=== PATIENT | male | born 1985 | race Caucasian/White ===

== ENCOUNTER 2019-12-01 20:13 | Emergency (ER) | payer BC ==
--- NOTE | 2019-12-01 20:26 | PDOC ---
Rapid Medical Evaluation Time Seen by Provider: 12/01/19 20:21 Medical Evaluation: 12/01/19 20:21 This patient had rapid medical evaluation in triage cc: chest pain x this afternoon HPI: Patient sent from [facility]. Reports flu-like symptoms today states while in [facility], started having mid sternal chest pain becoming diaphoretic and with left arm pain. Now with dizziness and weakness PE: NAD clear lungs bilaterally non tender abdomen Orders: labs, saline lock, ekg This patient will proceed to ed for further evaluation. Discharge Disposition - Diagnosis Chest pain - Referrals - Patient Instructions - Post Discharge Activity
[2019-12-01] MEDS ORDERED: SODIUM CHLORIDE 0.9% 1000 ML INFUS.BAG IV ONE (20:27)
[2019-12-01 20:28] VITALS: TEMP 97.6; BMI 26.8
[2019-12-01 23:36] LABS: BASO % 0.3 % (0-2.0); HEMATOCRIT 39.1 % (35.4-49); HEMOGLOBIN 13.6 GM/dL (11.7-16.9); LYMPH % 4.2 % (8-40); MCH 30.1 pg (25.7-33.7); MCHC 34.6 g/dl (32.0-35.9); MEAN CELL VOLUME 86.8 fl (80-96); MEAN PLT VOLUME 8.3 fl (7.5-11.1); MONO % 4.2 % (3.8-10.2); NEUT % 91.3 % (42.8-82.8); PLATELET COUNT 277 K/MM3 (134-434); RBC 4.51 M/mm3 (4.00-5.60); RDW 12.8 % (11.9-15.9)
[2019-12-01 23:49] LABS: INR 1.08 (0.83-1.09); PROTHROMBIN TIME (PATIENT) 12.8 SEC (9.7-13.0)
[2019-12-01 23:52] LABS: ACTIVATED PTT 27.9 SECONDS (25.2-36.5)
[2019-12-02] MEDS ORDERED: ACETAMINOPHEN 650 MG/20.3 ML ORAL SOLUTION (CUPS) PO ONE (00:42)
[2019-12-02 00:43] LABS: ALBUMIN 3.5 g/dl (3.4-5.0); ALK PHOS 67 U/L (45-117); ANION GAP 8 MMOL/L (8-16); BILIRUBIN,TOTAL 0.9 mg/dL (0.2-1); BLOOD UREA NITROGEN 21.4 mg/dL (7-18); CALCIUM 8.4 mg/dL (8.5-10.1); CHLORIDE 109 mmol/L (98-107); CO2 21 mmol/L (21-32); CREATININE 1.3 mg/dL (0.55-1.3); GLUCOSE,RANDOM 134 mg/dL (74-106); SGOT/AST 21 U/L (15-37); SGPT/ALT 29 U/L (13-61); SODIUM 139 mmol/L (136-145); TOT PROT 6.5 g/dl (6.4-8.2)
[2019-12-02] MEDS ORDERED: ACETAMINOPHEN 325 MG TABLET (FP) ONE (00:56)
--- NOTE | 2019-12-02 01:03 | PDOC ---
Documentation entered by Yfn Mckeon SCRIBE, acting as scribe for Jennifer Guthrie MD. Jennifer Guthrie MD: This documentation has been prepared by the Linda camilo Angel, SCRIBE, under my direction and personally reviewed by me in its entirety. I confirm that the documentation accurately reflects all work, treatment, procedures, and medical decision making performed by me. History of Present Illness - General Chief Complaint: Lightheaded Stated Complaint: WEAKNESS Time Seen by Provider: 12/01/19 20:21 History Source: Patient Exam Limitations: No Limitations - History of Present Illness Initial Comments: 12/02/19 00:50 The patient is a 34 year old male with no significant PMH who presents to the emergency department with a fever of 101.7 orally, body aches, sweats, cough and 1 episode of nbnb vomiting since 2pm. Pt states he went to [facility] for evaluation of symptoms, while he was signing papers he developed sudden onset R sided chest pain associated with palpitations, prompting his arrival to the ED. The patient denies any aggravating or alleviating factors. The pt states his chest pain has resolved since he has been in the ED. The patient denies shortness of breath, headache and dizziness. Denies nausea, diarrhea and constipation. Allergies: NKDA Past History - Past Medical History Allergies/Adverse Reactions: Allergies Allergy/AdvReac Type Severity Reaction Status Date / Time No Known Allergies Allergy Verified 12/01/19 20:28 COPD: No - Psycho Social/Smoking Cessation Hx Smoking History: Never smoked Hx Alcohol Use: No Drug/Substance Use Hx: No Review of Systems - Review of Systems Able to Perform ROS?: Yes Comments:: 12/02/19 00:51 GENERAL/CONSTITUTIONAL: + fever +sweats. +bodyachees. No chills. HEAD, EYES, EARS, NOSE AND THROAT: No change in vision. No ear pain or discharge. No sore throat. CARDIOVASCULAR: +R sided chest pain. +palpitations. No shortness of breath. RESPIRATORY: + cough. No wheezing, or hemoptysis. GASTROINTESTINAL: +Vomiting.No nausea, diarrhea or constipation. GENITOURINARY: No dysuria, frequency, or change in urination. MUSCULOSKELETAL: No joint or muscle swelling or pain. No neck or back pain. SKIN: No rash NEUROLOGIC: No headache, vertigo, loss of consciousness, or change in strength/ sensation. ENDOCRINE: No increased thirst. No abnormal weight change. HEMATOLOGIC/LYMPHATIC: No anemia, easy bleeding, or history of blood clots. ALLERGIC/IMMUNOLOGIC: No hives or skin allergy. *Physical Exam - Vital Signs Last Vital Signs Temp Pulse Resp BP Pulse Ox 97.6 F 100 H 19 90/57 L 97 12/01/19 20:22 12/01/19 20:22 12/01/19 20:22 12/01/19 20:22 12/01/19 20:22 - Physical Exam 12/02/19 00:50 GENERAL: Awake, alert, and fully oriented, in no acute distress. +febrile HEAD: No signs of trauma EYES: PERRLA, EOMI, sclera anicteric, conjunctiva clear ENT: Auricles normal inspection, hearing grossly normal, nares patent, oropharynx clear without exudates. Moist mucosa NECK: Normal ROM, supple, no lymphadenopathy, JVD, or masses LUNGS: Breath sounds equal, clear to auscultation bilaterally. No wheezes, and no crackles HEART: +tachycardia. no murmurs, rubs or gallops ABDOMEN: Soft, nontender, normoactive bowel sounds. No guarding, no rebound. No masses EXTREMITIES: Normal range of motion, no edema. No clubbing or cyanosis. No cords, erythema, or tenderness NEUROLOGICAL: Cranial nerves II through XII grossly intact. SKIN: Warm, Dry, normal turgor, no rashes or lesions noted. ED Treatment Course - LABORATORY CBC & Chemistry Diagram: 12/01/19 23:15 12/01/19 23:06 - ADDITIONAL ORDERS Additional order review: Laboratory Results 12/01/19 23:15 PT with INR 12.80 INR 1.08 PTT (Actin FS) 27.9 12/01/19 23:15 RBC 4.51 MCV 86.8 MCHC 34.6 RDW 12.8 MPV 8.3 Neutrophils % 91.3 H Lymphocytes % 4.2 L Monocytes % 4.2 Eosinophils % 0.0 Basophils % 0.3 - Medications Given in the ED: ED Medications Discontinued Medications Generic Name Dose Route Start Last Admin Trade Name Freq PRN Reason Stop Dose Admin Sodium Chloride 1,000 ml 12/01/19 20:27 12/01/19 22:32 Normal Saline - IV 12/01/19 20:28 1,000 ml ONCE ONE Administration Medical Decision Making - Medical Decision Making 12/02/19 01:02 34-year-old male with no significant past medical history developed a cough, malaise, fever today and also vomited 12/02/19 01:03 Return for URI, influenza Patient received IV fluids and Tylenol Will swab for flu 12/02/19 02:06 Flu swab was negative CBC showed a slight leukocytosis 11,000, no anemia Chemistries essentially unremarkable First troponin less than 0.02 Discharge - Discharge Information Problems reviewed: Yes Clinical Impression/Diagnosis: Chest pain Qualifiers: Chest pain type: unspecified Qualified Code(s): R07.9 - Chest pain, unspecified Condition: Stable Disposition: HOME - Follow up/Referral - Patient Discharge Instructions Patient Printed Discharge Instructions: DI for Chest Pain Additional Instructions: 1) Please follow-up with your primary care doctor in the next 2-3 days. Please call tomorrow to schedule a follow up appointment. If you cannot follow up with your doctor within 1 week please return to the Emergency Department for any urgent issues. 2) Your laboratory / imaging results were normal here in the ER. 3) If you have any worsening of symptoms or any other concerns, please return to the ER immediately. Return if worsening symptoms including fevers, headache, vomiting, visual or hearing disturbances, abdominal pain, chest pain, shortness of breath, syncope, dehydration, inability to take things by mouth/vomiting, altered mental status, or worsening concerning symptoms. 4) Please continue taking your home medications as directed. Side effects may include upset stomach, abdominal pain, vomiting, or diarrhea. Do not drink alcohol with your medications. - Post Discharge Activity
[2019-12-02 01:21] LABS: ANISOCYTOSIS 0; HELMET CELLS 0; HOWELL-JOLLY BODIES 0; MACROCYTOSIS 0; OVALOCYTE 0; PLATELET ESTIMATE NORMAL; ROULEAU 0; SICKELED CELLS 0; TARGET CELLS 0; TEAR DROP CELLS 0; TOXIC GRANULATION 0
[2019-12-02 03:33] VITALS: BP 100/89; PULSE 87
--- NOTE | 2019-12-02 04:02 | PDOC ---
*Physical Exam - Vital Signs Last Vital Signs Temp Pulse Resp BP Pulse Ox 97.6 F 87 18 100/89 98 12/01/19 20:22 12/02/19 03:32 12/02/19 03:32 12/02/19 03:32 12/02/19 03:32 - Physical Exam 12/02/19 04:06 General Appearance: Nourished. No Apparent Distress HEENT: No Pharyngeal Erythema, Tonsillar Exudate, Tonsillar Erythema Neck: No Cervical Lymphadenopathy Respiratory/Chest: Lungs Clear, Normal Breath Sounds. No Crackles, Rales, Rhonchi, Wheezing Cardiovascular: Regular Rhythm, Regular Rate. No Murmur, Gallops, Rubs Gastrointestinal/Abdominal: Normal Bowel Sounds, Soft. No Guarding, Rebound, Tenderness Musculoskeletal: No CVA Tenderness Extremity: Normal Capillary Refill Integumentary: Normal Color, Dry, Warm Neurologic: Fully Oriented, Alert, Normal Mood/Affect, Normal Response, ED Treatment Course - LABORATORY CBC & Chemistry Diagram: 12/01/19 23:15 12/01/19 23:06 - ADDITIONAL ORDERS Additional order review: Laboratory Results 12/02/19 12/01/19 12/01/19 02:20 23:15 23:06 PT with INR 12.80 INR 1.08 PTT (Actin FS) 27.9 Sodium 139 Potassium 4.0 Chloride 109 H Carbon Dioxide 21 Anion Gap 8 BUN 21.4 H Creatinine 1.3 Est GFR (CKD-EPI)AfAm 83.09 Est GFR (CKD-EPI)NonAf 71.69 Random Glucose 134 H Calcium 8.4 L Total Bilirubin 0.9 AST 21 ALT 29 Alkaline Phosphatase 67 Troponin I < 0.02 < 0.02 Total Protein 6.5 Albumin 3.5 12/01/19 23:15 RBC 4.51 MCV 86.8 MCHC 34.6 RDW 12.8 MPV 8.3 Neutrophils % 91.3 H Lymphocytes % 4.2 L Monocytes % 4.2 Eosinophils % 0.0 Basophils % 0.3 - RADIOLOGY Radiology Studies Ordered: Category Date Time Status CHEST PA & LAT [RAD] Stat Radiology 12/02/19 01:26 Taken - Medications Given in the ED: ED Medications Discontinued Medications Generic Name Dose Route Start Last Admin Trade Name Freq PRN Reason Stop Dose Admin Acetaminophen 650 mg 12/02/19 00:42 12/02/19 01:01 Tylenol Oral Solution - PO 12/02/19 00:43 650 mg ONCE ONE Administration Sodium Chloride 1,000 ml 12/01/19 20:27 12/01/19 22:32 Normal Saline - IV 12/01/19 20:28 1,000 ml ONCE ONE Administration Medical Decision Making - Medical Decision Making 12/02/19 04:07 Repeat troponin was unremarkable. The patient was reassessed and reports improvement in their symptoms. We are comfortable discharging the patient home in stable condition. Patient made aware of impression and plan, return precautions discussed including but not limited to worsening pain or symptoms, fevers, or signs of infection, chest pain, respiratory distress, inability to tolerate oral intake, dehydration, syncope, or neurologic changes. The patient is to follow up with PMD as recommended within 1 week, follow up information provided and the patient will call for an appointment. The patient is to take medications as instructed for duration of time and continue with supportive care , avoid triggers and precipitants. Patient is safe for outpatient follow-up. Discharge - Discharge Information Problems reviewed: Yes Clinical Impression/Diagnosis: Chest pain Qualifiers: Chest pain type: unspecified Qualified Code(s): R07.9 - Chest pain, unspecified Condition: Stable Disposition: HOME - Follow up/Referral - Patient Discharge Instructions Patient Printed Discharge Instructions: DI for Chest Pain Additional Instructions: 1) Please follow-up with your primary care doctor in the next 2-3 days. Please call tomorrow to schedule a follow up appointment. If you cannot follow up with your doctor within 1 week please return to the Emergency Department for any urgent issues. 2) Your laboratory / imaging results were normal here in the ER. 3) If you have any worsening of symptoms or any other concerns, please return to the ER immediately. Return if worsening symptoms including fevers, headache, vomiting, visual or hearing disturbances, abdominal pain, chest pain, shortness of breath, syncope, dehydration, inability to take things by mouth/vomiting, altered mental status, or worsening concerning symptoms. 4) Please continue taking your home medications as directed. Side effects may include upset stomach, abdominal pain, vomiting, or diarrhea. Do not drink alcohol with your medications. - Post Discharge Activity
--- NOTE | 2019-12-02 13:02 | EKG ---
Test Reason : Blood Pressure : / mmHG Vent. Rate : 099 BPM Atrial Rate : 099 BPM P-R Int : 142 ms QRS Dur : 076 ms QT Int : 318 ms P-R-T Axes : 053 037 014 degrees QTc Int : 408 ms NORMAL SINUS RHYTHM NONSPECIFIC T WAVE ABNORMALITY ABNORMAL ECG NO PREVIOUS ECGS AVAILABLE Confirmed by Ron Grier MD ([id number]) on 12/02/2019 1:02:37 PM Referred By: Confirmed By:Ron Grier MD
== END 2019-12-02 04:09 | disposition home or self-care (01) ==
LOC: JER 20:13
DX: R07.9 Chest pain, unspecified (principal); M79.602 Pain in left arm
CPT/HCPCS: 36415; 71046-TC-FY; 80053; 84484; 85025; 85610; 85730; 87804; 93005; 93010; 99285-25; J7030